=== PATIENT | male | born 1950 | race Caucasian/White ===

== ENCOUNTER 2018-11-25 23:35 | Emergency (ER) | payer OTHER ==
[2018-11-25 23:40] VITALS: BMI 23.5
[2018-11-25] MEDS ORDERED: TRILEPTAL300 MG PO (23:41)
[2018-11-25] MEDS ORDERED: EFFEXOR XR150 MG PO (23:41)
[2018-11-25] MEDS ORDERED: LIPITOR20 MG PO (23:41)
[2018-11-25] MEDS ORDERED: ELIQUIS5 MG PO (23:42)
[2018-11-25] MEDS ORDERED: PACERONE200 MG PO (23:42)
[2018-11-25] MEDS ORDERED: OMEPRAZOLE40 MG PO (23:42)
[2018-11-26 00:19] LABS: BASOPHILS 0.5 % (0-2); EOSINOPHILS 1.1 % (0-7); HEMATOCRIT 38.6 % (42.0-54.0); HEMOGLOBIN 12.8 g/dL (13.5-17.5); IMMATURE GRANULOCYTES 0.6 % (0-5); LYMPHOCYTES 15.9 % (15-50); MCHC 33.2 g/dL (31.0-37.0); MCV 87.3 fL (80.0-100.0); MEAN PLATELET VOLUME 9.9 fL (7.4-10.4); MONOCYTES 9.8 % (2-11); NEUTROPHILS 72.1 % (40-80); PLATELET COUNT 311 10x3/uL (130-400); RBC 4.42 10x6/uL (4.20-6.10); RDW 16.5 % (11.5-14.5); WBC 8.5 10x3/uL (4.8-10.8)
[2018-11-26 00:22] LABS: D-DIMER-QUANTITATIVE 0.47 ug/mLFEU (0.20-0.54); INR 0.98 (0.85-1.17); PROTIME 12.5 SECONDS (11.6-15.0)
[2018-11-26 00:25] LABS: ALBUMIN 3.8 g/dL (3.4-5.0); ANION GAP 8.1 mmol/L (8-16); BILIRUBIN - TOTAL 0.43 mg/dL (0.2-1.3); CALCIUM 9.1 mg/dL (8.5-10.1); CARBON DIOXIDE 33.1 mmol/L (21.0-32.0); CREATININE - SERUM 1.2 mg/dL (0.6-1.3); POTASSIUM - SERUM 4.2 mmol/L (3.5-5.1); PROTEIN - SERUM 7.6 g/dL (6.4-8.2)
[2018-11-26] MEDS ORDERED: TYLENOL #4 W/CO1 TAB PO (00:53)
[2018-11-26] MEDS ORDERED: NAPROXEN250 MG PO (00:53)
[2018-11-26 01:00] VITALS: BP 145/86
== END 2018-11-26 01:00 | disposition home or self-care (01) ==
LOC: D.ER 23:35
PROVIDERS: Family Medicine
DX: S76.911A Strain of unspecified muscles, fascia and tendons at thigh level, right thigh, initial encounter (principal); S46.912A Strain of unspecified muscle, fascia and tendon at shoulder and upper arm level, left arm, initial encounter; I10 Essential (primary) hypertension

== ENCOUNTER → 2019-03-09 14:00 | Outpatient (CLI) | payer OTHER ==
[~2019-03-09 14:00] MED LIST: EFFEXOR XR150 MG PO; ELIQUIS5 MG PO; LIPITOR20 MG PO; NAPROXEN250 MG PO; OMEPRAZOLE40 MG PO; PACERONE200 MG PO; TRILEPTAL300 MG PO; TYLENOL #4 W/CO1 TAB PO
== END | disposition home or self-care (01) ==
LOC: D.MRI 14:00
PROVIDERS: ATTEND Orthopaedic Surgery
DX: M25.512 Pain in left shoulder (principal); M54.12 Radiculopathy, cervical region

== ENCOUNTER → 2019-03-24 13:25 | Outpatient (CLI) | payer OTHER | END | disposition home or self-care (01) | LOC: D.US 13:25 | PROVIDERS: ATTEND Family Medicine | DX: N50.819 Testicular pain, unspecified (principal) ==

== ENCOUNTER → 2019-05-06 13:37 | Outpatient (CLI) | payer OTHER | END | disposition home or self-care (01) | LOC: D.RAD 13:37 → D.CT 05-09 15:30 | PROVIDERS: ATTEND Orthopaedic Surgery | DX: M25.512 Pain in left shoulder (principal); W19.XXXA Unspecified fall, initial encounter ==

== ENCOUNTER → 2019-05-27 13:35 | Outpatient (CLI) | payer MEDICARE | END | disposition home or self-care (01) | LOC: D.CT 05-23 11:00 | PROVIDERS: ATTEND Clinical Nurse Specialist Family Health | DX: M54.12 Radiculopathy, cervical region (principal) ==

== ENCOUNTER → 2019-12-12 10:56 | Outpatient (CLI) | payer MEDICARE | END | disposition home or self-care (01) | LOC: D.RAD 10:56 | PROVIDERS: ATTEND Family Medicine | DX: S56.911A Strain of unspecified muscles, fascia and tendons at forearm level, right arm, initial encounter (principal) ==